=== PATIENT | female | born 1945 | race Caucasian/White ===

== ENCOUNTER 2022-07-20 10:34 | Outpatient (REF) | payer MEDICARE, SELFPAY ==
--- NOTE | ~2022-07-20 | FL_ITS ---
EXAMINATION: FL BARIUM SWALLOW CLINICAL INFORMATION: Choking spells COMPARISON: None TECHNIQUE: Barium swallow examination is performed using fluoroscopic evaluation in addition to multiple fluoroscopic spot views. The patient is imaged both upright and prone and using both thick and thin sulfate along with effervescent granules. Fluoroscopy time: 1.6 minutes DAP: 6.135 Gycm2 Images: 77 FINDINGS: There is normal oral bolus control and transfer. Normal posterior tilt of the epiglottis with elevation of the hyoid. No cricopharyngeal abnormality. 13 mm barium tablet was swallowed without difficulty. This did have a mild delay of passage at the distal esophagus before clearing. The esophagus was normal in course, caliber, and contour. There was normal distensibility with no fixed segment of narrowing. No focal mucosal abnormality was identified. Mild esophageal dysmotility was observed. There was pooling of contrast in the esophagus with delayed clearance with the patient lying down. Contrast passed freely across the gastroesophageal junction into the stomach. Small sliding hiatal hernia. Mild to moderate gastroesophageal reflux was observed. FL/FL barium swallow IMPRESSION: Xhit-no-soixqvma gastroesophageal reflux observed. Mild esophageal dysmotility. Small sliding hiatal hernia.
== END 2022-07-20 10:35 | disposition home or self-care (01) ==
LOC: HO.XRAY 10:34
PROVIDERS: Visit Provider Otolaryngology
DX: R13.10 Dysphagia, unspecified (principal)
CPT/HCPCS: 74220